=== PATIENT | female | born 1970 | race Two or more races ===

== ENCOUNTER → 2016-08-20 | Outpatient (CLI) | payer BC | LOC: RAD 14:43 | PROVIDERS: ATTEND Internal Medicine | DX: R10.31 Right lower quadrant pain (principal) | CPT/HCPCS: 74177 ==

== ENCOUNTER → 2017-04-23 | Outpatient (CLI) | payer BC ==
--- NOTE | 2017-04-23 18:04 | WOMENS IMAGING REPORT ---
EXAM DESCRIPTION: BILAT DIAGNOSTIC MAMMO W/CAD; U/S BREAST UNILAT LIMITED COMPLETED DATE/TIME: 04/23/2017 9:55 am; 04/23/2017 10:30 am REASON FOR STUDY: MASTODYNIA; N64.4; R BREAST PAIN N64.4 MASTODYNIA COMPARISON: None. TECHNIQUE: Standard craniocaudal and mediolateral oblique views of each breast recorded using digita l acquisition. Additional right breast 90 mediolateral view and cone compression of the right retroareolar and uppe r outer quadrant in the CC and MLO orientations. Right breast ultrasound was also performed. LIMITATIONS: None. FINDINGS: RIGHT BREAST MASSES: No suspicious masses. CALCIFICATIONS: No new or suspicious calcifications. ARCHITECTURAL DISTORTION: None. DEVELOPING DENSITY: None. ASYMMETRY: None noted. OTHER: No other significant findings. LEFT BREAST MASSES: No suspicious masses. CALCIFICATIONS: No new or suspicious calcifications. ARCHITECTURAL DISTORTION: None. DEVELOPING DENSITY: None. ASYMMETRY: None noted. OTHER: No other significant finding. Read with the assistance of CAD: .[facility] - R2 Cenova Version 1.3 .[facility] - R2 Cenova Version 1.3 .[facility] - R2 Cenova Version 2.4 .[facility] [place] - R2 Cenova Version 2.4 .[facility] - R2 Residential Nurse Version 9.2 Right breast ultrasound: Patient gives a history of a palpable abnormality in the right retroareolar region. Ultrasound at th e 6 o'clock position retroareolar region demonstrates two tiny simple cysts, 5 mm and 3 mm in diamete r. These are benign findings which require no further specific followup. Ultrasound of the upper ou ter quadrant no focal findings. IMPRESSION: No mammographic or sonographic evidence for malignancy right breast. No mammographic evidence for malignancy left breast BREAST DENSITY: b. There are scattered areas of fibroglandular density. BIRAD: 2 Benign findings. RECOMMENDATION: RECOMMENDED FOLLOW UP: Please continue yearly bilateral screening mammography in Apr. Please consider bilateral screening tomosynthesis. SPECIFIC INTERVENTION/IMAGING/CONSULTATION RECOMMENDED:No additional intervention/ imaging/consultati on needed at this time. COMMUNICATION:Patient notified by letter COMMENT: The patient has been notified of the results by letter per MQSA requirements. Additional no tification policies are in place for contacting patient with suspicious or incomplete findings. Quality ID #225: The [employer] recommends an annual screening mammogram for women aged 40 years or over. This facility utilizes a reminder system to ensure that all patients receive reminder letters, and/or direct phone calls for appointments. This includes reminders for routine scr eening mammograms, diagnostic mammograms, or other Breast Imaging Interventions when appropriate. Th is patient will be placed in the appropriate reminder system. The [employer] (ACR) has developed recommendations for screening MRI of the breast s in certain patient populations, to be used in conjunction with mammography. Breast MRI surveillanc e may be appropriate for women with more than 20% lifetime risk of developing breast cancer as deter mined by genetic testing, significant family history of the disease, or history of mantle radiation f or Hodgkins Disease. ACR Practice Guidelines 2008. TECHNICAL DOCUMENTATION: FINDING NUMBER: (1) ASSESSMENT: (1) JOB ID: [id number] [employer]- All Rights Reserved
--- NOTE | 2017-04-23 18:04 | WOMENS IMAGING REPORT ---
EXAM DESCRIPTION: BILAT DIAGNOSTIC MAMMO W/CAD; U/S BREAST UNILAT LIMITED COMPLETED DATE/TIME: 04/23/2017 9:55 am; 04/23/2017 10:30 am REASON FOR STUDY: MASTODYNIA; N64.4; R BREAST PAIN N64.4 MASTODYNIA COMPARISON: None. TECHNIQUE: Standard craniocaudal and mediolateral oblique views of each breast recorded using digita l acquisition. Additional right breast 90 mediolateral view and cone compression of the right retroareolar and uppe r outer quadrant in the CC and MLO orientations. Right breast ultrasound was also performed. LIMITATIONS: None. FINDINGS: RIGHT BREAST MASSES: No suspicious masses. CALCIFICATIONS: No new or suspicious calcifications. ARCHITECTURAL DISTORTION: None. DEVELOPING DENSITY: None. ASYMMETRY: None noted. OTHER: No other significant findings. LEFT BREAST MASSES: No suspicious masses. CALCIFICATIONS: No new or suspicious calcifications. ARCHITECTURAL DISTORTION: None. DEVELOPING DENSITY: None. ASYMMETRY: None noted. OTHER: No other significant finding. Read with the assistance of CAD: .[facility] - R2 Cenova Version 1.3 .[facility] Imaging - R2 Cenova Version 1.3 .[facility] - R2 Cenova Version 2.4 .[facility] - R2 Cenova Version 2.4 .[facility] - R2 Civil Designer Version 9.2 Right breast ultrasound: Patient gives a history of a palpable abnormality in the right retroareolar region. Ultrasound at th e 6 o'clock position retroareolar region demonstrates two tiny simple cysts, 5 mm and 3 mm in diamete r. These are benign findings which require no further specific followup. Ultrasound of the upper ou ter quadrant no focal findings. IMPRESSION: No mammographic or sonographic evidence for malignancy right breast. No mammographic evidence for malignancy left breast BREAST DENSITY: b. There are scattered areas of fibroglandular density. BIRAD: 2 Benign findings. RECOMMENDATION: RECOMMENDED FOLLOW UP: Please continue yearly bilateral screening mammography in Apr. Please consider bilateral screening tomosynthesis. SPECIFIC INTERVENTION/IMAGING/CONSULTATION RECOMMENDED:No additional intervention/ imaging/consultati on needed at this time. COMMUNICATION:Patient notified by letter COMMENT: The patient has been notified of the results by letter per MQSA requirements. Additional no tification policies are in place for contacting patient with suspicious or incomplete findings. Quality ID #225: The [employer] recommends an annual screening mammogram for women aged 40 years or over. This facility utilizes a reminder system to ensure that all patients receive reminder letters, and/or direct phone calls for appointments. This includes reminders for routine scr eening mammograms, diagnostic mammograms, or other Breast Imaging Interventions when appropriate. Th is patient will be placed in the appropriate reminder system. The [employer] (ACR) has developed recommendations for screening MRI of the breast s in certain patient populations, to be used in conjunction with mammography. Breast MRI surveillanc e may be appropriate for women with more than 20% lifetime risk of developing breast cancer as deter mined by genetic testing, significant family history of the disease, or history of mantle radiation f or Hodgkins Disease. ACR Practice Guidelines 2008. TECHNICAL DOCUMENTATION: FINDING NUMBER: (1) ASSESSMENT: (1) JOB ID: [id number] [employer]- All Rights Reserved
== END ==
LOC: WI 09:41
PROVIDERS: ATTEND Family Medicine
DX: N64.4 Mastodynia (principal); N60.01 Solitary cyst of right breast
CPT/HCPCS: 76642; G0204; 77066

== ENCOUNTER 2018-11-22 16:16 | Emergency (ER) | payer BC ==
[2018-11-22] MEDS ORDERED: OXYCODONE-ACETAMINOPHEN 5-325 MG TABLET PO ONE ×2 (18:55→23:13)
--- NOTE | 2018-11-22 18:59 | ER Document Report ---
ED Medical Screen (RME) - General Chief Complaint: Post Surgical Pain Stated Complaint: POST OP COMPLICATIONS Time Seen by Provider: 11/22/18 18:45 Primary Care Provider: FLAKO ARZOLA MD [Primary Care Provider] - Follow up as needed Notes: Patient is otherwise healthy 48-year-old female presents to the emergency department for generalized pelvic pain. Patient states she was at an [employer] office today in [place] and had a "procedure done." When asked the patient to describe the procedure to tell me what it was she describes as though it may have been a D&C. Patient is unsure of the exact name of the procedure. States this procedure was around noon. States she continued pain so she called the set office in [place]. States they called in a prescription for hydrocodone. States she took 1 pill around 1600 hrs. Patient presents to the emergency department for continued pain. GENERAL: Alert, actively rocking back and forth in the wheelchair, stands up and is intermittently crying. ABDOMEN: Soft, generalized tenderness right pelvic left pelvic suprapubic region. Non-distended. Bowel sounds present in all 4 quadrants. I have greeted and performed a rapid initial assessment of this patient. A comprehensive ED assessment and evaluation of the patient, analysis of test results and completion of the medical decision making process will be conducted by additional ED providers. This medical record was dictated with voice recognizing software. There may be grammatical, syntax errors that are unintended. TRAVEL OUTSIDE OF THE [place] IN LAST 30 DAYS: No - Related Data Allergies/Adverse Reactions: No Known Allergies Allergy (Unverified 11/22/18 16:24) Physical Exam - Vital signs Vitals: Temp Pulse Resp BP Pulse Ox 97.9 F 60 24 H 123/85 100 11/22/18 16:31 11/22/18 16:31 11/22/18 16:31 11/22/18 16:31 11/22/18 16:31 Course - Vital Signs Vital signs: Temp Pulse Resp BP Pulse Ox 97.9 F 60 24 H 123/85 100 11/22/18 16:31 11/22/18 16:31 11/22/18 16:31 11/22/18 16:31 11/22/18 16:31 Doctor's Discharge - Discharge Referrals: HALLEGADO,FLAKO, MD [Primary Care Provider] - Follow up as needed
--- NOTE | 2018-11-22 20:20 | RADIOLOGY REPORT (SQ) ---
EXAM DESCRIPTION: XR ABDOMEN SUPINE AND ERECT WITH CHEST (ABD ACUTE SERIES) COMPLETED DATE/TME: 11/22/2018 18:54 CLINICAL HISTORY: 48 years Female ,recent pelvic procedure COMPARISON: None. TECHNIQUE: Frontal view chest x-ray and two views of the abdomen. FINDINGS: The cardiomediastinal silhouette appears unremarkable. No consolidating infiltrates or pleural effusions. No free air is identified beneath the hemidiaphragms. No dilated loops of bowel to suggest obstruction. IMPRESSION: No acute plain film abnormality is identified.
[2018-11-22 21:26] LABS: APPEARANCE,URINE SLIGHTLY-CLOUDY; BILIRUBIN,URINE NEGATIVE (NEGATIVE); COLOR,URINE YELLOW; GLUCOSE, URINE NEGATIVE (NEGATIVE); KETONES,URINE NEGATIVE (NEGATIVE); LEUKOCYTE ESTERASE,URINE NEGATIVE (NEGATIVE); NITRITE,URINE NEGATIVE (NEGATIVE); PROTEIN,URINE NEGATIVE (NEGATIVE); URINE SPECIFIC GRAVITY 1.019; UROBILINOGEN,URINE NEGATIVE mg/dL (<2.0)
[2018-11-22] MEDS ORDERED: OXYCODONE HCL IR 5 MG TABLET PO ONE (23:46)
--- NOTE | 2018-11-22 23:52 | ER Document Report ---
ED General - General Chief Complaint: Post Surgical Pain Stated Complaint: POST OP COMPLICATIONS Time Seen by Provider: 11/22/18 18:45 Primary Care Provider: FLAKO ARZOLA MD [Primary Care Provider] - Follow up as needed Notes: Patient is a 48-year-old female who had an office based uterine ablation done today at [place] [employer] who presents with increasing lower abdominal pain after having the procedure. Describes a throbbing aching, constant pain that is severe in nature to her lower abdomen just above her pubic bone. States the pain started during the procedure and has been ongoing since that time. De scribes the pain as being moderately improved by ibuprofen, worsened by movement or touching the area. States that she is only had a scant amount of vaginal bleeding since that time. Denies fever or constitutional symptoms. Was referred to the emergency department by her MORTGAGE PROCESSING CLERK. No history of similar symptoms in the past. TRAVEL OUTSIDE OF THE [place] IN LAST 30 DAYS: No - Related Data Allergies/Adverse Reactions: No Known Allergies Allergy (Unverified 11/22/18 16:24) Past Medical History - General Information source: Patient - Social History Smoking Status: Never Smoker Frequency of alcohol use: None Drug Abuse: None Lives with: Spouse/Significant other Family History: Reviewed & Not Pertinent Patient has suicidal ideation: No Patient has homicidal ideation: No Renal/ Medical History: Denies: Hx Peritoneal Dialysis Review of Systems - Review of Systems Notes: Constitutional: Negative for fever. HENT: Negative for sore throat. Eyes: Negative for visual changes. Cardiovascular: Negative for chest pain. Respiratory: Negative for shortness of breath. Gastrointestinal: Positive for abdominal pain Genitourinary: Positive for vaginal bleeding Musculoskeletal: Negative for back pain. Skin: Negative for rash. Neurological: Negative for headaches, weakness or numbness. 10 point ROS negative except as marked above and in HPI. Physical Exam - Vital signs Vitals: Temp Pulse Resp BP Pulse Ox 97.9 F 60 24 H 123/85 100 11/22/18 16:31 11/22/18 16:31 11/22/18 16:31 11/22/18 16:31 11/22/18 16:31 Interpretation: Normal Notes: PHYSICAL EXAMINATION: GENERAL: Well-appearing, well-nourished and in no acute distress. HEAD: Atraumatic, normocephalic. EYES: Pupils equal round and reactive to light, extraocular movements intact, sclera anicteric, conjunctiva are normal. ENT: nares patent, oropharynx clear without exudates. Moist mucous membranes. NECK: Normal range of motion, supple without lymphadenopathy LUNGS: Breath sounds clear to auscultation bilaterally and equal. No wheezes rales or rhonchi. HEART: Regular rate and rhythm without murmurs ABDOMEN: Soft, mild suprapubic and bilateral adnexal discomfort, abdomen otherwise soft nontender, normoactive bowel sounds. No guarding, no rebound. No masses appreciated. EXTREMITIES: Normal range of motion, no pitting or edema. No cyanosis. NEUROLOGICAL: No focal neurological deficits. Moves all extremities spontaneously and on command. PSYCH: Moderately anxious SKIN: Warm, Dry, normal turgor, no rashes or lesions noted. Course - Re-evaluation Re-evalutation: 11/22/18 23:54 Patient presents with lower abdominal cramping and pain after having an endometrial ablation done at [place] [employer]. Patient apparently experienced quite a bit of pain during the procedure and has had uncontrolled pain since that time. Her abdominal exam is very benign, mild suprapubic tenderness but no areas of focal rebound, guarding or rigidity. Quite comfortable after receiving 1 5 mg Percocet tablet. I did speak to the OB who took care of the patient earlier today who verifies that the patient had a scope post procedure that did not demonstrate any evidence of uterine perforation per urinalysis and two-view abdomen likewise are unremarkable and the two-view abdomen does not demonstrate any evidence of perforation. I suspect that the patient is having postoperative uterine cramping and pain but do not suspect perforation, torsion, pelvic inflammatory disease or alternative life- threatening condition as the etiology of presentation. At this time will discharge with return precautions and follow-up recommendations. Verbal discharge instructions given a the bedside and opportunity for questions given. Medication warnings reviewed. Patient is in agreement with this plan and has verbalized understanding of return precautions and the need for [employer]ORT[employer]ING [employer]ERK follow-up in the next 24-72 hours. - Vital Signs Vital signs: Temp Pulse Resp BP Pulse Ox 98.5 F 80 15 138/72 H 100 11/23/18 00:18 11/23/18 00:18 11/23/18 00:18 11/23/18 00:18 11/23/18 00:18 - Laboratory Laboratory results interpreted by me: 11/22/18 21:15 Urine Blood MODERATE H - Diagnostic Test Radiology reviewed: Image reviewed, Reports reviewed Radiology results interpreted by me: 11/23/18 04:18 Acute abdominal series, no evidence of free air Discharge - Discharge Clinical Impression: Lower abdominal pain, Post procedure discomfort Condition: Good Disposition: HOME, SELF-CARE Additional Instructions: You were seen today for lower abdominal pain after a uterine ablation. Your pain is likely related to uterine spasming secondary to this procedure. Please continue to take ibuprofen as prescribed. You may take 1 of the Percocet tablets every 4 hours as needed for severe pain not controlled by ibuprofen. Your MORTGAGE PROCESSING CLERK will likely be contacting you tomorrow as we discussed today to see how you are doing. Return to the emergency department immediately if you develop a fever greater than 100.4 F, worsening pain, heavy vaginal bleeding or your bleeding through more than 2 pads an hour for more than 2 hours in a row, or you develop any other symptoms that are worrisome to you. Prescriptions: Oxycodone HCl/Acetaminophen [Percocet 5-325 mg Tablet] 1 tab PO Q4H PRN #6 tablet PRN Reason: Referrals: FLAKO ARZOLA MD [Primary Care Provider] - Follow up as needed
[2018-11-23] MEDS ORDERED: OXYCODONE HCL IR 5 MG TABLET PO ONE (00:14)
[2018-11-23 00:22] VITALS: BP 138/72
== END 2018-11-23 00:22 | disposition home or self-care (01) ==
LOC: ER 16:16
DX: G89.18 Other acute postprocedural pain (principal); R10.30 Lower abdominal pain, unspecified; N93.9 Abnormal uterine and vaginal bleeding, unspecified; Z98.890 Other specified postprocedural states
CPT/HCPCS: 74022; 81001; 99283